=== PATIENT | female | born 1950 | race Caucasian/White ===

== ENCOUNTER 2019-05-02 20:42 | Inpatient (IN) | payer MEDICARE, OTHER ==
[2019-05-02] MEDS: SODIUM CHLORIDE 0.9% 500 ML 500 ML IV SCH ×2 (21:46→21:47)
[2019-05-02 21:58] LABS: Anisocytosis Moderate; Basophils % (A) 1 %; Eosinophils # (A) 0.1 k/uL (0-0.7); Eosinophils % (A) 2 %; HCT 35.7 % (34.0-46.0); HGB 10.7 gm/dL (11.4-16.0); Hypochromasia Marked; Lymphocytes # (A) 1.2 k/uL (1.0-4.8); Lymphocytes % (A) 37 %; MCH 23.5 pg (25.0-35.0); MCV 78.2 fL (80.0-100.0); Mean Platelet Volume 7.2; Microcytosis Moderate; Monocytes # (A) 0.2 k/uL (0-1.0); Monocytes % (A) 7 %; Neutrophils # (A) 1.6 k/uL (1.3-7.7); Neutrophils % (A) 49 %; Platelet Count 227 k/uL (150-450); Poikilocytosis Moderate; RBC 4.56 m/uL (3.80-5.40); RDW 22.3 % (11.5-15.5); WBC 3.2 k/uL (3.8-10.6)
[2019-05-02 22:04] LABS: ALT 25 U/L (9-52); AST 41 U/L (14-36); African American GFR (CKD) >90 (>60 ml/min/1.73 sqM); Albumin 4.2 g/dL (3.5-5.0); Alkaline Phosphatase 133 U/L (38-126); Anion Gap 10 mmol/L; Blood Urea Nitrogen 6 mg/dL (7-17); Calcium 8.8 mg/dL (8.4-10.2); Carbon Dioxide 22 mmol/L (22-30); Chloride 109 mmol/L (98-107); Glucose 97 mg/dL (74-99); Potassium 3.6 mmol/L (3.5-5.1); Sodium 141 mmol/L (137-145); Total Bilirubin 0.3 mg/dL (0.2-1.3); Total Protein 7.2 g/dL (6.3-8.2)
[2019-05-02 22:06] LABS: Appearance,Urine Clear (Clear); Bilirubin,Urine Negative (Negative); Blood,Urine Negative (Negative); Color,Urine Colorless; Glucose,Urine (UA) Negative (Negative); Ketones,Urine Negative (Negative); Leukocyte Esterase,Urine Negative (Negative); Nitrite,Urine Negative (Negative); Protein,Urine Negative (Negative); Specific Gravity,Urine 1.007 (1.001-1.035); Urobilinogen,Urine <2.0 mg/dL (<2.0)
[2019-05-02 22:12] LABS: Partial Thromboplastin Time 23.7 sec (22.0-30.0); Prothrombin Time 10.3 sec (9.0-12.0)
[2019-05-02] MEDS ORDERED: NALOXONE 0.4 MG/ML 1 ML VIAL IV PRN (22:57)
[2019-05-02] MEDS ORDERED: IBUPROFEN 400 MG TAB PO PRN (22:57)
[2019-05-02] MEDS ORDERED: ACETAMINOPHEN TAB 325 MG TAB PO PRN (22:57)
[2019-05-02] MEDS ORDERED: ONDANSETRON 4 MG/2 ML VIAL IVP PRN (22:57)
--- NOTE | 2019-05-03 | ED ---
Recheck HPI - General Chief Complaint: Recheck/Abnormal Lab/Rx Stated Complaint: tachycardia Time Seen by Provider: 05/02/19 21:14 Source: patient Mode of arrival: ambulatory Limitations: no limitations - History of Present Illness Initial Comments: Benita is a 68-year-old female with extensive past medical history with extensive recent medical history. Patient has a history of tachycardia for which she has been on by systolic and digoxin in the past. Patient reports that approximately a month ago she felt like these medications were causing her to be fatigued so she weaned herself off of them. At that time she was still feeling fatigued and was evaluated and outside hospital where she was noted to be anemic with a hemoglobin of 7.1. She was admitted to the hospital and received a blood transfusion during that admission she was also noted to have blood cultures positive for strep C, chronic diarrhea. Patient was determined to be stable for colonoscopy and decision was made to discharge her home with improving hemoglobins. Patient reports that due to the positive blood culture she was discharged home with a PICC line and IV antibiotics which she used for until one week ago. Patient reports that since discontinuing the antibiotic she has noticed progressively worsening tachycardia and subjective fevers. She return to the outside hospital for reevaluation today and it was determined that she be transferred to our facility for evaluation by infectious disease as well as cardiology. - Related Data Home Medications Medication Instructions Recorded Confirmed Calcium Carbonate/Vitamin D3 1 tab PO DAILY 05/02/19 05/03/19 [Calcium 500-Vit D3 200 Tablet] Cholecalciferol (Vitamin D3) 4,000 unit PO BID 05/02/19 05/03/19 [Vitamin D3] Garlic 1 tab PO DAILY 05/02/19 05/03/19 Glucosamine-Chondr 500-400Mg 1 tab PO DAILY 05/02/19 05/03/19 Magnesium Oxide [Mag-Ox] 400 mg PO BID 05/02/19 05/03/19 Montelukast [Singulair] 10 mg PO DAILY 05/02/19 05/03/19 Niacin [Niacin ER] 1,000 mg PO DAILY 05/02/19 05/03/19 [place]-3 Fatty Acids/Fish Oil [Fish 1,000 mg PO DAILY 05/02/19 05/03/19 Oil 1,000 mg Softgel] Omeprazole 20 mg PO DAILY 05/02/19 05/03/19 Ubidecarenone [Co Q-10] 100 mg PO DAILY 05/02/19 05/03/19 Vitamin E 1,000 unit PO DAILY 05/02/19 05/03/19 Allergies Allergy/AdvReac Type Severity Reaction Status Date / Time Barbiturates Allergy Anaphylaxis Verified 05/02/19 22:18 Sulfa (Sulfonamide Allergy Anaphylaxis Verified 05/02/19 22:18 Antibiotics) Review of Systems ROS Statement: Those systems with pertinent positive or pertinent negative responses have been documented in the HPI. ROS Other: All systems not noted in ROS Statement are negative. Past Medical History Additional Past Medical History / Comment(s): Rapid heart rate History of Any Multi-Drug Resistant Organisms: None Reported Past Surgical History: Appendectomy, Tubal Ligation Past Psychological History: No Psychological Hx Reported Smoking Status: Never smoker Past Alcohol Use History: None Reported Past Drug Use History: None Reported - Past Family History Mother Family Medical History: AICD/Pacemaker, Congestive Heart Failure (CHF), Liver Disease Additional Family Medical History / Comment(s): mitral valve replacement General Exam - General Exam Comments Initial Comments: Physical Exam GENERAL: Patient is well-developed and well-nourished. Patient is nontoxic and well-hydrated and is in no distress. HENT: Normocephalic, Atraumatic. EYES: PERRL, EOMI PULMONARY: Unlabored respirations No audible rales rhonchi or wheezing was noted. CARDIOVASCULAR: Tachycardic, regular ABDOMEN: Soft and nontender with normal bowel sounds. SKIN: Skin is clear with no lesions or rashes and otherwise unremarkable. : Deferred NEUROLOGIC: Patient is alert and oriented x3. Moving all extremities spontaneously MUSCULOSKELETAL: Normal extremities with adequate strength and full range of motion. No lower extremity swelling or edema. No calf tenderness. PSYCHIATRIC: Normal psychiatric evaluation Limitations: no limitations Course Vital Signs 05/02/19 05/02/19 05/02/19 20:51 21:51 22:46 Temperature 99.3 F Pulse Rate 131 H 134 H 114 H Respiratory 20 18 20 Rate Blood Pressure 135/103 153/87 158/93 O2 Sat by Pulse 97 96 98 Oximetry 05/02/19 05/03/19 23:57 00:13 Temperature Pulse Rate 128 H 92 Respiratory 18 Rate Blood Pressure 149/93 O2 Sat by Pulse 99 Oximetry Medical Decision Making - Medical Decision Making The patient was seen and evaluated history is obtained from the patient, family and review of medical records Patient has been in the hospital 3 weeks ago for anemia requiring transfusion, she did not have a colonoscopy at that time and they did not have any cause for her anemia though it appears based on her labs she's had chronic anemia for a number of years. During that admission she was also found to have blood cultures positive for strep C. She also was experiencing chronic daily diarrhea. His discharge from the hospital patient completed her antibiotic she continues to experience frequent episodes of diarrhea she's noticed daily fevers and aggressively worsening tachycardia workup at outside facility today revealed leukopenia, improving anemia, normal kidney function, normal cardiac labs however the patient was noted to be tachycardic with heart rates signs tachycardia in the 130s decision was made to transfer patient to our facility for further evaluation by multiple specialists. Repeat labs including blood cultures were ordered upon patient's arrival despite the fact that the patient had received Flagyl prior to arrival. Additional IV fluids were ordered. Patient remained mildly tachycardic but hemodynamically stable otherwise. Patient was admitted to the hospital with consults to infectious disease Dr. Cantor. I advised the patient and her family that further consults including hematology and cardiology will be determined by the admitting team. - Lab Data Result diagrams: 05/02/19 21:43 05/02/19 21:43 Lab Results 05/02/19 05/02/19 05/02/19 Range/Units 21:43 21:43 21:43 WBC 3.2 L (3.8-10.6) k/uL RBC 4.56 (3.80-5.40) m/uL Hgb 10.7 L (11.4-16.0) gm/dL Hct 35.7 (34.0-46.0) % MCV 78.2 L (80.0-100.0) fL MCH 23.5 L (25.0-35.0) pg MCHC 30.0 L (31.0-37.0) g/dL RDW 22.3 H (11.5-15.5) % Plt Count 227 (150-450) k/uL Neutrophils % 49 % Lymphocytes % 37 % Monocytes % 7 % Eosinophils % 2 % Basophils % 1 % Neutrophils # 1.6 (1.3-7.7) k/uL Lymphocytes # 1.2 (1.0-4.8) k/uL Monocytes # 0.2 (0-1.0) k/uL Eosinophils # 0.1 (0-0.7) k/uL Basophils # 0.0 (0-0.2) k/uL Hypochromasia Marked Poikilocytosis Moderate Anisocytosis Moderate Microcytosis Moderate PT (9.0-12.0) sec INR (<1.2) APTT (22.0-30.0) sec Sodium 141 (137-145) mmol/L Potassium 3.6 (3.5-5.1) mmol/L Chloride 109 H (98-107) mmol/L Carbon Dioxide 22 (22-30) mmol/L Anion Gap 10 mmol/L BUN 6 L (7-17) mg/dL Creatinine 0.46 L (0.52-1.04) mg/dL Est GFR (CKD-EPI)AfAm >90 (>60 ml/min/1.73 sqM) Est GFR (CKD-EPI)NonAf >90 (>60 ml/min/1.73 sqM) Glucose 97 (74-99) mg/dL Plasma Lactic Acid [place]um 0.8 (0.7-2.0) mmol/L Calcium 8.8 (8.4-10.2) mg/dL Total Bilirubin 0.3 (0.2-1.3) mg/dL AST 41 H (14-36) U/L ALT 25 (9-52) U/L Alkaline Phosphatase 133 H (38-126) U/L Total Protein 7.2 (6.3-8.2) g/dL Albumin 4.2 (3.5-5.0) g/dL Urine Color Urine Appearance (Clear) Urine pH (5.0-8.0) Ur Specific [place] (1.001-1.035) Urine Protein (Negative) Urine Glucose (UA) (Negative) Urine Ketones (Negative) Urine Blood (Negative) Urine Nitrite (Negative) Urine Bilirubin (Negative) Urine Urobilinogen (<2.0) mg/dL Ur Leukocyte Esterase (Negative) 05/02/19 05/02/19 Range/Units 21:43 21:43 WBC (3.8-10.6) k/uL RBC (3.80-5.40) m/uL Hgb (11.4-16.0) gm/dL Hct (34.0-46.0) % MCV (80.0-100.0) fL MCH (25.0-35.0) pg MCHC (31.0-37.0) g/dL RDW (11.5-15.5) % Plt Count (150-450) k/uL Neutrophils % % Lymphocytes % % Monocytes % % Eosinophils % % Basophils % % Neutrophils # (1.3-7.7) k/uL Lymphocytes # (1.0-4.8) k/uL Monocytes # (0-1.0) k/uL Eosinophils # (0-0.7) k/uL Basophils # (0-0.2) k/uL Hypochromasia Poikilocytosis Anisocytosis Microcytosis PT 10.3 (9.0-12.0) sec INR 1.0 (<1.2) APTT 23.7 (22.0-30.0) sec Sodium (137-145) mmol/L Potassium (3.5-5.1) mmol/L Chloride (98-107) mmol/L Carbon Dioxide (22-30) mmol/L Anion Gap mmol/L BUN (7-17) mg/dL Creatinine (0.52-1.04) mg/dL Est GFR (CKD-EPI)AfAm (>60 ml/min/1.73 sqM) Est GFR (CKD-EPI)NonAf (>60 ml/min/1.73 sqM) Glucose (74-99) mg/dL Plasma Lactic Acid [place] (0.7-2.0) mmol/L Calcium (8.4-10.2) mg/dL Total Bilirubin (0.2-1.3) mg/dL AST (14-36) U/L ALT (9-52) U/L Alkaline Phosphatase (38-126) U/L Total Protein (6.3-8.2) g/dL Albumin (3.5-5.0) g/dL Urine Color Colorless Urine Appearance Clear (Clear) Urine pH 7.0 (5.0-8.0) Ur Specific [place] 1.007 (1.001-1.035) Urine Protein Negative (Negative) Urine Glucose (UA) Negative (Negative) Urine Ketones Negative (Negative) Urine Blood Negative (Negative) Urine Nitrite Negative (Negative) Urine Bilirubin Negative (Negative) Urine Urobilinogen <2.0 (<2.0) mg/dL Ur Leukocyte Esterase Negative (Negative) Disposition Clinical Impression: Streptococcal bacteremia, Diarrhea, Chronic anemia, Sinus tachycardia Disposition: ADMITTED IP TO THIS HOSP Condition: Stable Is patient prescribed a controlled substance at d/c from ED?: No
[2019-05-03] MEDS: SODIUM CHLORIDE 0.9% 1,000 ML IV SCH ×3 (01:29→21:42)
[2019-05-03 07:49] LABS: ALT 26 U/L (9-52); AST 40 U/L (14-36); African American GFR (CKD) >90 (>60 ml/min/1.73 sqM); Albumin 3.6 g/dL (3.5-5.0); Alkaline Phosphatase 101 U/L (38-126); Anion Gap 7 mmol/L; Blood Urea Nitrogen 5 mg/dL (7-17); Calcium 8.8 mg/dL (8.4-10.2); Carbon Dioxide 25 mmol/L (22-30); Chloride 109 mmol/L (98-107); Glucose 89 mg/dL (74-99); Magnesium 1.8 mg/dL (1.6-2.3); Potassium 3.5 mmol/L (3.5-5.1); Sodium 141 mmol/L (137-145); Total Bilirubin 0.3 mg/dL (0.2-1.3); Total Protein 6.4 g/dL (6.3-8.2)
[2019-05-03 08:01] LABS: Anisocytosis Moderate; HCT 33.6 % (34.0-46.0); Hypochromasia Marked; MCH 23.3 pg (25.0-35.0); MCHC 29.7 g/dL (31.0-37.0); MCV 78.5 fL (80.0-100.0); Mean Platelet Volume 6.7; Microcytosis Moderate; Platelet Count 212 k/uL (150-450); Poikilocytosis Slight; RBC 4.28 m/uL (3.80-5.40); RDW 23.1 % (11.5-15.5); WBC 2.8 k/uL (3.8-10.6)
[2019-05-03 12:14] LABS: Eosinophils # (M) 0.11 k/uL (0-0.7); Lymphocytes # (M) 1.12 k/uL (1.0-4.8); Monocytes # (M) 0.31 k/uL (0-1.0); Neutrophils # (M) 1.26 k/uL (1.3-7.7); Neutrophils % (M) 45 %; Nucleated Red Blood Cells 0 /100 WBC (0-0); Total Cells Counted 100
[2019-05-03] MEDS: METOPROLOL TARTRATE 25 MG TAB PO SCH ×2 (14:23→21:34)
--- NOTE | 2019-05-03 15:33 | P.HPIM ---
History of Present Illness 68-year-old female was admitted secondary to tachycardia which is in was transferred from [facility]. Patient was recently treated for bacteremia with the IV antibiotics with for total duration of 14 days which she completed about a week ago, since stopping antibiotics patient started having subjective fevers although fevers or not appreciable here patient the Zosyn tachycardia as well patient has positive blood cultures for strep C probably from sore throat she was never told which she got these blood cultures positive from. Patient does have history of porphyria for which patient received blood transfusion there. Patient's present hemoglobin is 10. Patient denied any cough denied dysuria vomiting. No signs or symptoms of sepsis at this time no fever since this hospitalization. Infectious disease was consulted from ER. 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 HEENT: No recent visual problems or hearing problems. Denied any sore throat. CARDIOVASCULAR: No chest pain, orthopnea, PND, no syncope. PULMONARY: No shortness of breath, no cough, no hemoptysis. GASTROINTESTINAL: No diarrhea, no nausea, no vomiting, no abdominal pain. NEUROLOGICAL: No headaches, no weakness, no numbness. HEMATOLOGICAL: Denies any bleeding or petechiae. GENITOURINARY: Denies any burning micturition, frequency, or urgency. MUSCULOSKELETAL/RHEUMATOLOGICAL: Denies any joint pain, swelling, or any muscle pain. ENDOCRINE: Denies any polyuria or polydipsia. The rest of the 14-point review of systems is negative. Past Medical History Additional Past Medical History / Comment(s): Rapid heart rate History of Any Multi-Drug Resistant Organisms: None Reported Past Surgical History: Appendectomy, Tubal Ligation Past Anesthesia/Blood Transfusion Reactions: Previous Problems w/ Anesthesia Additional Past Anesthesia/Blood Transfusion Reaction / Comment(s): slow to come out of surgery and b;adder issues Past Psychological History: No Psychological Hx Reported Smoking Status: Never smoker Past Alcohol Use History: None Reported Past Drug Use History: None Reported - Past Family History Mother Family Medical History: AICD/Pacemaker, Congestive Heart Failure (CHF), Liver Disease Additional Family Medical History / Comment(s): mitral valve replacement Medications and Allergies Home Medications Medication Instructions Recorded Confirmed Type Calcium Carbonate/Vitamin D3 1 tab PO DAILY 05/02/19 05/03/19 History [Calcium 500-Vit D3 200 Tablet] Cholecalciferol (Vitamin D3) 4,000 unit PO BID 05/02/19 05/03/19 History [Vitamin D3] Garlic 1 tab PO DAILY 05/02/19 05/03/19 History Glucosamine-Chondr 500-400Mg 1 tab PO DAILY 05/02/19 05/03/19 History Magnesium Oxide [Mag-Ox] 400 mg PO BID 05/02/19 05/03/19 History Montelukast [Singulair] 10 mg PO DAILY 05/02/19 05/03/19 History Niacin [Niacin ER] 1,000 mg PO DAILY 05/02/19 05/03/19 History [place]-3 Fatty Acids/Fish Oil [Fish 1,000 mg PO DAILY 05/02/19 05/03/19 History Oil 1,000 mg Softgel] Omeprazole 20 mg PO DAILY 05/02/19 05/03/19 History Ubidecarenone [Co Q-10] 100 mg PO DAILY 05/02/19 05/03/19 History Vitamin E 1,000 unit PO DAILY 05/02/19 05/03/19 History Allergies Allergy/AdvReac Type Severity Reaction Status Date / Time Barbiturates Allergy Anaphylaxis Verified 05/02/19 22:18 Sulfa (Sulfonamide Allergy Anaphylaxis Verified 05/02/19 22:18 Antibiotics) Physical Exam Vitals: Vital Signs Temp Pulse Pulse Resp BP BP Pulse Ox 05/03/19 07:00 98.3 F 124 H 16 137/90 97 05/03/19 02:00 111 H 18 05/03/19 00:58 98.3 F 111 H 18 144/71 97 05/03/19 00:13 92 05/02/19 23:57 128 H 18 149/93 99 05/02/19 22:46 114 H 20 158/93 98 05/02/19 21:51 134 H 18 153/87 96 05/02/19 20:51 99.3 F 131 H 20 135/103 97 Intake and Output 05/03/19 05/03/19 05/03/19 06:59 14:59 22:59 Intake Total 600 Balance 600 Intake: IV 600 Sodium Chloride 0.9% 1, 600 000 ml @ 75 mls/hr IV . [id number] [facility] Rx#:[id number] PHYSICAL EXAMINATION: GENERAL: The patient is alert and oriented x3, not in any acute distress. Well developed, well nourished. HEENT: Pupils are round and equally reacting to light. EOMI. No scleral icterus. No conjunctival pallor. Normocephalic, atraumatic. No pharyngeal erythema. No thyromegaly. CARDIOVASCULAR: S1 and S2 present. No murmurs, rubs, or gallops. Tachycardic PULMONARY: Chest is clear to auscultation, no wheezing or crackles. ABDOMEN: Soft, nontender, nondistended, normoactive bowel sounds. No palpable organomegaly. MUSCULOSKELETAL: No joint swelling or deformity. EXTREMITIES: No cyanosis, clubbing, or pedal edema. NEUROLOGICAL: Gross neurological examination did not reveal any focal deficits. SKIN: No rashes. Results CBC & Chem 7: 05/03/19 07:04 05/03/19 07:04 Labs: Abnormal Lab Results - Last 24 Hours (Table) 05/02/19 05/02/19 05/03/19 Range/Units 21:43 21:43 07:04 WBC 3.2 L 2.8 L (3.8-10.6) k/uL Hgb 10.7 L 10.0 L (11.4-16.0) gm/dL Hct 33.6 L (34.0-46.0) % MCV 78.2 L 78.5 L (80.0-100.0) fL MCH 23.5 L 23.3 L (25.0-35.0) pg MCHC 30.0 L 29.7 L (31.0-37.0) g/dL RDW 22.3 H 23.1 H (11.5-15.5) % Neutrophils # (Manual) 1.26 L (1.3-7.7) k/uL Chloride 109 H (98-107) mmol/L BUN 6 L (7-17) mg/dL Creatinine 0.46 L (0.52-1.04) mg/dL AST 41 H (14-36) U/L Alkaline Phosphatase 133 H (38-126) U/L C-Reactive Protein (<10.0) mg/L 05/03/19 05/03/19 Range/Units 07:04 13:49 WBC (3.8-10.6) k/uL Hgb (11.4-16.0) gm/dL Hct (34.0-46.0) % MCV (80.0-100.0) fL MCH (25.0-35.0) pg MCHC (31.0-37.0) g/dL RDW (11.5-15.5) % Neutrophils # (Manual) (1.3-7.7) k/uL Chloride 109 H (98-107) mmol/L BUN 5 L (7-17) mg/dL Creatinine 0.46 L (0.52-1.04) mg/dL AST 40 H (14-36) U/L Alkaline Phosphatase (38-126) U/L C-Reactive Protein 10.7 H (<10.0) mg/L Microbiology - Last 24 Hours (Table) 05/02/19 Unknown Urine Culture - Preliminary Urine,Voided Thrombosis Risk Factor Assmnt - Choose All That Apply Any of the Below Risk Factors Present?: No Other Risk Factors: Yes Each Risk Factor Represents 2 Points: Age 61-74 years Other congenital or acquired thrombophilia - If yes, enter type in comment: No Thrombosis Risk Factor Assessment Total Risk Factor Score: 2 Thrombosis Risk Factor Assessment Level: Low Risk Assessment and Plan Plan: -Sinus tachycardia etiology is not clear will obtain TSH patient does not have any signs or symptoms of a pulmonary embolism at this time. We will obtain a d- dimer as well. Obtain echocardiogram patient will be started on metoprolol. -Recent bacteremia patient does not have any signs or symptoms of sepsis at this time I do not believe patient will require any antibiotics at this time. Infectious disease was consulted from ER. -History of copro porphyria -Gastroesophageal reflux disease.
--- NOTE | 2019-05-04 00:08 | P.CONS ---
History of Present Illness - Reason for Consult Consult date: 05/03/19 Bacteremia Requesting physician: Patricio Kent - Chief Complaint Weakness and palpitations x 1 week - History of Present Illness Patient is a 68-year-old female recently admitted at [facility] with the patient has been treated for anemia with blood transfusion and apparently the patient did have extensive workup but no clear focus of bleeding during that admission the patient also have positive blood culture for group C strep that was treated with IV antibiotic therapy and was advised oral diabetic on discharge with the patient family refused hence the patient did get a PICC line and was sent home on one week course of continuous ampicillin infusion which the patient has completed 1 week ago and the PICC line was subsequently discontinued patient says since completion of her antibiotic she has not been feeling well. Feeling weak and tired did have some palpitation but no chest pain did have some headache which has been chronic for her also been complaining of sore throat for couple of years with no recent worsening shortness of breath or chest pain she did have some cough which has been trying nature off and on abdominal pain and recently did have diarrhea with multiple loose stools no blood or mucus in the stools with the symptoms the patient has been evaluated at [facility] and subsequently transferred to [facility] for further evaluation of the same patient did have blood culture obtained which currently pending patient with no fever during this admission is currently not on any systemic antibiotics therapy, ration to have history of rheumatic fever as a child however her family she did have an echocardiogram completed when she was admitted to [facility] and was told it was normal Review of Systems Positive points has been mentioned in HPI, rest of the systems are negative Past Medical History Additional Past Medical History / Comment(s): Rapid heart rate History of Any Multi-Drug Resistant Organisms: None Reported Past Surgical History: Appendectomy, Tubal Ligation Past Anesthesia/Blood Transfusion Reactions: Previous Problems w/ Anesthesia Additional Past Anesthesia/Blood Transfusion Reaction / Comm: slow to come out of surgery and b;adder issues Past Psychological History: No Psychological Hx Reported Smoking Status: Never smoker Past Alcohol Use History: None Reported Past Drug Use History: None Reported - Past Family History Mother Family Medical History: AICD/Pacemaker, Congestive Heart Failure (CHF), Liver Disease Additional Family Medical History / Comment(s): mitral valve replacement Medications and Allergies Home Medications Medication Instructions Recorded Confirmed Type Calcium Carbonate/Vitamin D3 1 tab PO DAILY 05/02/19 05/03/19 History [Calcium 500-Vit D3 200 Tablet] Cholecalciferol (Vitamin D3) 4,000 unit PO BID 05/02/19 05/03/19 History [Vitamin D3] Garlic 1 tab PO DAILY 05/02/19 05/03/19 History Glucosamine-Chondr 500-400Mg 1 tab PO DAILY 05/02/19 05/03/19 History Magnesium Oxide [Mag-Ox] 400 mg PO BID 05/02/19 05/03/19 History Montelukast [Singulair] 10 mg PO DAILY 05/02/19 05/03/19 History Niacin [Niacin ER] 1,000 mg PO DAILY 05/02/19 05/03/19 History [place]-3 Fatty Acids/Fish Oil [Fish 1,000 mg PO DAILY 05/02/19 05/03/19 History Oil 1,000 mg Softgel] Omeprazole 20 mg PO DAILY 05/02/19 05/03/19 History Ubidecarenone [Co Q-10] 100 mg PO DAILY 05/02/19 05/03/19 History Vitamin E 1,000 unit PO DAILY 05/02/19 05/03/19 History Allergies Allergy/AdvReac Type Severity Reaction Status Date / Time Barbiturates Allergy Anaphylaxis Verified 05/02/19 22:18 Sulfa (Sulfonamide Allergy Anaphylaxis Verified 05/02/19 22:18 Antibiotics) Physical Exam Vitals: Vital Signs Temp Pulse Pulse Resp BP BP Pulse Ox 05/03/19 07:00 98.3 F 124 H 16 137/90 97 05/03/19 02:00 111 H 18 05/03/19 00:58 98.3 F 111 H 18 144/71 97 05/03/19 00:13 92 05/02/19 23:57 128 H 18 149/93 99 05/02/19 22:46 114 H 20 158/93 98 05/02/19 21:51 134 H 18 153/87 96 05/02/19 20:51 99.3 F 131 H 20 135/103 97 Intake and Output 05/02/19 05/03/19 05/03/19 22:59 06:59 14:59 Other: Weight 48.081 kg GENERAL DESCRIPTION: Elderly female lying in bed, no distress. No tachypnea or accessory muscle of respiration use. HEENT: Shows Pallor , no scleral icterus. Oral mucous membrane is dry. No pharyngeal erythema or thrush NECK: Trachea central, no thyromegaly. LUNGS: Unlabored breathing. Clear to auscultation anteriorly. No wheeze or c rackle. HEART: S1, S2, regular rate and rhythm. No loud murmur ABDOMEN: Soft, no tenderness , guarding or rigidity, no organomegaly EXTREMITIES: No edema of feet. SKIN: No rash, no masses palpable. NEUROLOGICAL: The patient is awake, alert, oriented x3, mood and affect normal Results CBC & Chem 7: 05/03/19 07:04 05/03/19 07:04 Labs: Abnormal Lab Results - Last 24 Hours (Table) 05/02/19 05/02/19 05/03/19 Range/Units 21:43 21:43 07:04 WBC 3.2 L 2.8 L (3.8-10.6) k/uL Hgb 10.7 L 10.0 L (11.4-16.0) gm/dL Hct 33.6 L (34.0-46.0) % MCV 78.2 L 78.5 L (80.0-100.0) fL MCH 23.5 L 23.3 L (25.0-35.0) pg MCHC 30.0 L 29.7 L (31.0-37.0) g/dL RDW 22.3 H 23.1 H (11.5-15.5) % Neutrophils # (Manual) 1.26 L (1.3-7.7) k/uL Chloride 109 H (98-107) mmol/L BUN 6 L (7-17) mg/dL Creatinine 0.46 L (0.52-1.04) mg/dL AST 41 H (14-36) U/L Alkaline Phosphatase 133 H (38-126) U/L 05/03/19 Range/Units 07:04 WBC (3.8-10.6) k/uL Hgb (11.4-16.0) gm/dL Hct (34.0-46.0) % MCV (80.0-100.0) fL MCH (25.0-35.0) pg MCHC (31.0-37.0) g/dL RDW (11.5-15.5) % Neutrophils # (Manual) (1.3-7.7) k/uL Chloride 109 H (98-107) mmol/L BUN 5 L (7-17) mg/dL Creatinine 0.46 L (0.52-1.04) mg/dL AST 40 H (14-36) U/L Alkaline Phosphatase (38-126) U/L Microbiology - Last 24 Hours (Table) 05/02/19 Unknown Urine Culture - Preliminary Urine,Voided Assessment and Plan Assessment: 1-patient being admitted hospital her with generalized symptom of weakness palpitation in this patient who do give a history of positive blood culture with group C streptococcus when she was admitted to [facility] with no clear focus of that positive blood culture in this patient currently with no evidence of any cellulitis or skin soft tissue infection patient did have history of rheumatic fever as a child underlying endocarditis less likely but not entirely excluded 2-patient with diarrhea and recent antibiotic exposure will need to rule out C. diff colitis Plan: 1-blood cultures will be repeated 2 today 2-check a stool for C. diff 3-we will also check a CRP and Procalcitonin level 4-hold on any systemic antibiotic therapy as currently no obvious clinical focus of infection 5-await echocardiogram that has already been ordered we will follow up on clinical condition and cultures to further adjust medication if needed Thank you for this consultation will follow this patient along with you Family and the bedside their questions and concerns were answered in Layman terms Time with Patient: Greater than 30
[2019-05-04] MEDS: METOPROLOL TARTRATE 25 MG TAB PO SCH ×2 (08:23→20:51)
--- NOTE | 2019-05-04 12:55 | P.DS ---
Providers Date of admission: 05/02/19 22:59 Attending physician: Janis Edmonds Consults: 05/02/19 22:57 Consult Physician Urgent Consulting Provider: Leroy Conte Consult Reason/Comments: Blood culture Strep C + Do you want consulting provider notified?: Yes, Notify in am Primary care physician: Bhavna Holcomb MD Hospital Course: 68-year-old female was admitted secondary to tachycardia which is in was transferred from [facility]. Patient was recently treated for bacteremia with the IV antibiotics with for total duration of 14 days which she completed about a week ago, since stopping antibiotics patient started having subjective fevers although fevers or not appreciable here patient the Zosyn tachycardia as well patient has positive blood cultures for strep C probably from sore throat she was never told which she got these blood cultures positive from. Patient does have history of porphyria for which patient received blood transfusion there. Patient's present hemoglobin is 10. Patient denied any cough denied dysuria vomiting. No signs or symptoms of sepsis at this time no fever since this hospitalization. Infectious disease was consulted from ER. 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 05/04/2019 There is no evidence of infection PICC line will be removed and patient will let require any antibiotics. Patient will be discharged on metoprolol d-dimer is negative., TSH is within normal limits. Do not have any echocardiogram available but patient doesn't have any murmurs and clinical exam. PHYSICAL EXAMINATION: GENERAL: The patient is alert and oriented x3, not in any acute distress. Well developed, well nourished. HEENT: Pupils are round and equally reacting to light. EOMI. No scleral icterus. No conjunctival pallor. Normocephalic, atraumatic. No pharyngeal erythema. No thyromegaly. CARDIOVASCULAR: S1 and S2 present. No murmurs, rubs, or gallops. PULMONARY: Chest is clear to auscultation, no wheezing or crackles. ABDOMEN: Soft, nontender, nondistended, normoactive bowel sounds. No palpable organomegaly. MUSCULOSKELETAL: No joint swelling or deformity. EXTREMITIES: No cyanosis, clubbing, or pedal edema. NEUROLOGICAL: Gross neurological examination did not reveal any focal deficits. SKIN: No rashes. Please of her dementia from yesterday for further details Patient Condition at Discharge: Stable Plan - Discharge Summary New Discharge Prescriptions: New Metoprolol Tartrate [Lopressor] 25 mg PO BID #60 tab Continue Montelukast [Singulair] 10 mg PO DAILY Omeprazole 20 mg PO DAILY Vitamin E 1,000 unit PO DAILY Ubidecarenone [Co Q-10] 100 mg PO DAILY [place]-3 Fatty Acids/Fish Oil [Fish Oil 1,000 mg Softgel] 1,000 mg PO DAILY Niacin [Niacin ER] 1,000 mg PO DAILY Magnesium Oxide [Mag-Ox] 400 mg PO BID Glucosamine-Chondr 500-400Mg 1 tab PO DAILY Garlic 1 tab PO DAILY Cholecalciferol (Vitamin D3) [Vitamin D3] 4,000 unit PO BID Calcium Carbonate/Vitamin D3 [Calcium 500-Vit D3 200 Tablet] 1 tab PO DAILY Discharge Medication List Calcium Carbonate/Vitamin D3 [Calcium 500-Vit D3 200 Tablet] 1 tab PO DAILY 05/02/19 [History] Cholecalciferol (Vitamin D3) [Vitamin D3] 4,000 unit PO BID 05/02/19 [History] Garlic 1 tab PO DAILY 05/02/19 [History] Glucosamine-Chondr 500-400Mg 1 tab PO DAILY 05/02/19 [History] Magnesium Oxide [Mag-Ox] 400 mg PO BID 05/02/19 [History] Montelukast [Singulair] 10 mg PO DAILY 05/02/19 [History] Niacin [Niacin ER] 1,000 mg PO DAILY 05/02/19 [History] [place]-3 Fatty Acids/Fish Oil [Fish Oil 1,000 mg Softgel] 1,000 mg PO DAILY 05/02/19 [History] Omeprazole 20 mg PO DAILY 05/02/19 [History] Ubidecarenone [Co Q-10] 100 mg PO DAILY 05/02/19 [History] Vitamin E 1,000 unit PO DAILY 05/02/19 [History] Metoprolol Tartrate [Lopressor] 25 mg PO BID #60 tab 05/04/19 [Rx] Follow up Appointment(s)/Referral(s): Bhavna Holcomb MD [Primary Care Provider] - 3 Days Discharge Disposition: HOME SELF-CARE
[2019-05-04] MEDS: SODIUM CHLORIDE 0.9% 1,000 ML IV SCH ×2 (15:45→23:37)
--- NOTE | 2019-05-04 17:18 | PN ---
PROGRESS NOTE DATE OF SERVICE: 05/04/2019. REASON FOR FOLLOWUP: History of group C bacteremia and question of infection. INTERVAL HISTORY: The patient remains to be afebrile. The patient is currently breathing comfortably. Denies having any headache. No chest pain. Minimal cough. No sputum production. No abdominal pain. The patient's diarrhea has resolved. Did have a bowel movement. PHYSICAL EXAMINATION: Blood pressure is 116/72 with a pulse of 75, temperature 98.5. She is 97% on room air. General description is an elderly female lying in bed in no distress. RESPIRATORY SYSTEM: Unlabored breathing. Clear to auscultation anteriorly. HEART: S1, S2. Regular rate and rhythm. ABDOMEN: Soft, nontender. EXTREMITY: No edema feet. LABS: Blood culture has been negative. Urine is negative. Chest x-ray report negative. DIAGNOSTIC IMPRESSION AND PLAN: 1. Patient admitted to the hospital with palpitation in this patient with a recent history of group C bacteremia with unclear focus. However, culture has been negative so far in this patient with no fever or elevated white count making it to be less likely infectious etiology. Echocardiogram is currently pending. Continue hold on any systemic antibiotic therapy at this point. 2. Diarrhea, possible antibiotic use, resolved. No need for any C-dif testing at this point, as the patient did have a solid bowel movement. MMODL / IJN: [id number] /
[2019-05-05 01:35] VITALS: PULSE 76
[2019-05-05 08:04] VITALS: BP 121/80; RESP 12; TEMP 98.4
[2019-05-05] MEDS: METOPROLOL TARTRATE 25 MG TAB PO SCH (09:45)
--- NOTE | 2019-05-05 12:13 | P.DS ---
Providers Date of admission: 05/02/19 22:59 Attending physician: Janis Edmonds Consults: 05/02/19 22:57 Consult Physician Urgent Consulting Provider: Leroy Conte Consult Reason/Comments: Blood culture Strep C + Do you want consulting provider notified?: Yes, Notify in am Primary care physician: Bhavna Holcomb MD Hospital Course: Patient was not discharged yesterday waiting for echocardiogram because of which I evaluated the patient although that is no change in assessment and plan please refer to my discharge summary for from yesterday for further details. PHYSICAL EXAMINATION: GENERAL: The patient is alert and oriented x3, not in any acute distress. Thin built female HEENT: Pupils are round and equally reacting to light. EOMI. No scleral icterus. No conjunctival pallor. Normocephalic, atraumatic. No pharyngeal erythema. No thyromegaly. CARDIOVASCULAR: S1 and S2 present. No murmurs, rubs, or gallops. PULMONARY: Chest is clear to auscultation, no wheezing or crackles. ABDOMEN: Soft, nontender, nondistended, normoactive bowel sounds. No palpable organomegaly. MUSCULOSKELETAL: No joint swelling or deformity. EXTREMITIES: No cyanosis, clubbing, or pedal edema. NEUROLOGICAL: Gross neurological examination did not reveal any focal deficits. SKIN: No rashes. Patient Condition at Discharge: Stable Plan - Discharge Summary New Discharge Prescriptions: New Metoprolol Tartrate [Lopressor] 25 mg PO BID #60 tab Continue Montelukast [Singulair] 10 mg PO DAILY Omeprazole 20 mg PO DAILY Vitamin E 1,000 unit PO DAILY Ubidecarenone [Co Q-10] 100 mg PO DAILY [place]-3 Fatty Acids/Fish Oil [Fish Oil 1,000 mg Softgel] 1,000 mg PO DAILY Niacin [Niacin ER] 1,000 mg PO DAILY Magnesium Oxide [Mag-Ox] 400 mg PO BID Glucosamine-Chondr 500-400Mg 1 tab PO DAILY Garlic 1 tab PO DAILY Cholecalciferol (Vitamin D3) [Vitamin D3] 4,000 unit PO BID Calcium Carbonate/Vitamin D3 [Calcium 500-Vit D3 200 Tablet] 1 tab PO DAILY Discharge Medication List Calcium Carbonate/Vitamin D3 [Calcium 500-Vit D3 200 Tablet] 1 tab PO DAILY 05/02/19 [History] Cholecalciferol (Vitamin D3) [Vitamin D3] 4,000 unit PO BID 05/02/19 [History] Garlic 1 tab PO DAILY 05/02/19 [History] Glucosamine-Chondr 500-400Mg 1 tab PO DAILY 05/02/19 [History] Magnesium Oxide [Mag-Ox] 400 mg PO BID 05/02/19 [History] Montelukast [Singulair] 10 mg PO DAILY 05/02/19 [History] Niacin [Niacin ER] 1,000 mg PO DAILY 05/02/19 [History] [place]-3 Fatty Acids/Fish Oil [Fish Oil 1,000 mg Softgel] 1,000 mg PO DAILY 05/02/19 [History] Omeprazole 20 mg PO DAILY 05/02/19 [History] Ubidecarenone [Co Q-10] 100 mg PO DAILY 05/02/19 [History] Vitamin E 1,000 unit PO DAILY 05/02/19 [History] Metoprolol Tartrate [Lopressor] 25 mg PO BID #60 tab 05/04/19 [Rx] Follow up Appointment(s)/Referral(s): [facility] [NON-STAFF] - Rubens Cantor MD [STAFF PHYSICIAN] - As Needed Nonstaff,Physician [REFERRING] - 05/07/19 1:00 pm (Patient has pre set up appointment with Dr. Holcomb [address] [place], [place] [id number] ) Patient Instructions/Handouts: Anemia (DC), Complications of Infection (GEN), Tachycardia (GEN) Activity/Diet/Wound Care/Special Instructions: Call to schedule outpatient appointments with neurologist and vice president consulting services of your choice. Discharge Disposition: HOME SELF-CARE
--- NOTE | 2019-05-05 19:01 | ECHOF ---
Referral Reason:sinus tachy MEASUREMENTS -------- HEIGHT: 154.9 cm WEIGHT: 48.1 kg BP: 118/76 IVSd: 1.1 cm (0.6 - 1.1) LVIDd: 3.1 cm (3.9 - 5.3) LVPWd: 1.4 cm (0.6 - 1.1) IVSs: 1.5 cm LVIDs: 2.2 cm LVPWs: 1.6 cm LAESV Index (A-L): 33.34 ml/m Ao Diam: 3.2 cm (2.0 - 3.7) LA Diam: 2.9 cm (2.7 - 3.8) AV Cusp: 2.1 cm (1.5 - 2.6) EPSS: 0.3 cm MV E Sathish: 0.68 m/s MV DecT: 171 ms MV A Sathish: 0.75 m/s MV E/A Ratio: 0.91 AR PHT: 395 ms RAP: 5.00 mmHg RVSP: 27.50 mmHg MV EF SLOPE: 31.27 mm/s (70 - 150) MV EXCURSION: 13.36 mm (> 18.000) FINDINGS -------- Sinus rhythm. This was a technically good study. The left ventricular size is normal. There is mild concentric left ventricular hypertrophy. Overa ll left ventricular systolic function is normal with, an EF between 55 - 60 %. The right ventricle is normal in size. LA is midly dilated 29-33ml/m2. The right atrial size is normal. Interatrial and interventricular septum intact. Aortic valve is trileaflet and is mildly thickened. There is mild aortic regurgitation. The mitral valve leaflets are mildly thickened. Mild mitral regurgitation is present. There is mi ld mitral valve prolapse. Mild tricuspid regurgitation present. There is no evidence of pulmonary hypertension. The right v entricular systolic pressure, as measured by Doppler, is 27.50mmHg. There is no pulmonic regurgitation present. The aortic root size is normal. Normal inferior vena cava with normal inspiratory collapse consistent with estimated right atrial pre ssure of 5 mmHg. There is no pericardial effusion. CONCLUSIONS -------- 1. Sinus rhythm. 2. This was a technically good study. 3. The left ventricular size is normal. 4. There is mild concentric left ventricular hypertrophy. 5. Overall left ventricular systolic function is normal with, an EF between 55 - 60 %. 6. The right ventricle is normal in size. 7. LA is midly dilated 29-33ml/m2. 8. The right atrial size is normal. 9. Interatrial and interventricular septum intact. 10. Aortic valve is trileaflet and is mildly thickened. 11. There is mild aortic regurgitation. 12. The mitral valve leaflets are mildly thickened. 13. Mild mitral regurgitation is present. 14. There is mild mitral valve prolapse. 15. Mild tricuspid regurgitation present. 16. There is no evidence of pulmonary hypertension. 17. The right ventricular systolic pressure, as measured by Doppler, is 27.50mmHg. 18. There is no pulmonic regurgitation present. 19. The aortic root size is normal. 20. Normal inferior vena cava with normal inspiratory collapse consistent with estimated right atrial pressure of 5 mmHg. 21. There is no pericardial effusion. PROOFER APPRENTICE: Enid Andersen RDCS
== END 2019-05-05 13:51 | disposition home health service (06) | DRG 309 ==
LOC: EC 20:42 → SUPCPDRO 20:42 → 4SSUR 22:59
PROVIDERS: ADMIT Hospitalist; ATTEND Hospitalist
DX: R00.0 Tachycardia, unspecified (principal); E80.29 Other porphyria; K21.9 Gastro-esophageal reflux disease without esophagitis; R19.7 Diarrhea, unspecified; E11.9 Type 2 diabetes mellitus without complications; D64.9 Anemia, unspecified; D72.819 Decreased white blood cell count, unspecified; Z79.899 Other long term (current) drug therapy; Z86.19 Personal history of other infectious and parasitic diseases; Z90.49 Acquired absence of other specified parts of digestive tract; Z98.51 Tubal ligation status; Z88.2 Allergy status to sulfonamides; Z88.8 Allergy status to other drugs, medicaments and biological substances; Z82.49 Family history of ischemic heart disease and other diseases of the circulatory system; Z83.79 Family history of other diseases of the digestive system
CPT/HCPCS: 36415; 80053; 81003; 83605; 83735; 84145; 84443; 85025; 85379; 85610; 85652; 85730; 86140; 87040; 87086; 93005; 93306; 99285